=== PATIENT | male | born 1990 | race Caucasian/White ===

== ENCOUNTER 2016-10-21 14:43 | Emergency (ER) | payer MEDICAID ==
[~2016-10-21] VITALS: Ht 175.3 cm; Wt 73.0 kg
[~2016-10-21 14:43] MED LIST: CLON1 PO; DIVA500T52 PO; FOLI1 PO; RISP4 PO; THIA100 PO
[2016-10-21] MEDS ORDERED: ARIP2 PO (14:45)
[2016-10-21 15:01] VITALS: BP 173/99
[2016-10-21 15:57] LABS: BASOPHILS % (AUTO) 0.6 % (0.0-2.0); EOSINOPHILS % (AUTO) 5.2 % (1.0-6.0); HEMATOCRIT 45.8 % (41-53); HEMOGLOBIN 15.4 g/dL (13.5-17.5); LYMPHOCYTES # (AUTO) 2.9 K/uL (1.0-4.8); LYMPHOCYTES % (AUTO) 33.6 % (22.0-44.0); MEAN CORPUSCULAR HEMOGLOBIN 27.7 pg (26.0-34.0); MEAN CORPUSCULAR HGB CONC 33.6 G/dL (31.0-37.0); MEAN CORPUSCULAR VOLUME 83 fL (80-100); MONOCYTES # (AUTO) 0.6 K/uL (0.1-1.0); MONOCYTES % (AUTO) 7.3 % (2.0-9.0); NEUTROPHILS # (AUTO) 4.5 K/uL (1.8-7.7); NEUTROPHILS % (AUTO) 53.3 % (40.0-70.0); PLATELET COUNT (AUTO) 268 K/uL (150-450); RED BLOOD CELL COUNT(AUTO) 5.55 MIL/uL (4.50-5.90); RED CELL DISTRIBUTION WIDTH 14.1 % (11.5-14.5); WHITE BLOOD COUNT (AUTO) 8.5 K/uL (4.5-11.0)
[2016-10-21 16:28] LABS: ANION GAP 12 mmol/L (8-16); CALCIUM, TOTAL 8.8 mg/dL (8.8-10.5); CARBON DIOXIDE 26 mmol/L (22-29); CHLORIDE 105 mmol/L (98-107); CREATININE 0.94 mg/dL (0.60-1.30); GLOMERULAR FILTR. RATE CALC > 60 mL/min (>60); POTASSIUM 3.3 mmol/L (3.5-5.1); SODIUM SERUM 143 mmol/L (136-145); UREA NITROGEN, BLOOD 14 mg/dL (7-18)
[2016-10-21 16:35] LABS: ALANINE AMINOTRANSFERASE 35 U/L (12-78); ALBUMIN 3.5 g/dL (3.4-5.0); ASPARTATE AMINOTRANSFERASE 25 U/L (15-37); BILIRUBIN,TOTAL 0.6 mg/dL (0.1-1.0); TOTAL PROTEIN, SERUM 7.1 g/dL (6.4-8.2)
== END 2016-10-21 17:54 | disposition home or self-care (01) ==
LOC: EMS 14:44
DX: F41.9 Anxiety disorder, unspecified (principal); F17.210 Nicotine dependence, cigarettes, uncomplicated; F12.90 Cannabis use, unspecified, uncomplicated
CPT/HCPCS: 36415; 80053; 85025; 99284; G0480

== ENCOUNTER 2016-11-19 21:27 | Emergency (ER) | payer MEDICAID ==
[~2016-11-19] VITALS: Ht 167.6 cm; Wt 76.0 kg
[~2016-11-19 21:27] MED LIST changes: +ARIP2 PO; -CLON1 PO; -DIVA500T52 PO; -FOLI1 PO; -RISP4 PO; -THIA100 PO
[2016-11-19] MEDS ORDERED: LORazepam 1 MG TABLET PO ONE (22:15)
[2016-11-19 22:25] LABS: BASOPHILS % (AUTO) 0.8 % (0.0-2.0); EOSINOPHILS % (AUTO) 2.3 % (1.0-6.0); HEMATOCRIT 47.7 % (41-53); LYMPHOCYTES # (AUTO) 2.4 K/uL (1.0-4.8); LYMPHOCYTES % (AUTO) 21.4 % (22.0-44.0); MEAN CORPUSCULAR HGB CONC 33.4 G/dL (31.0-37.0); MEAN CORPUSCULAR VOLUME 84 fL (80-100); MONOCYTES # (AUTO) 0.8 K/uL (0.1-1.0); MONOCYTES % (AUTO) 7.6 % (2.0-9.0); NEUTROPHILS # (AUTO) 7.6 K/uL (1.8-7.7); NEUTROPHILS % (AUTO) 67.9 % (40.0-70.0); PLATELET COUNT (AUTO) 300 K/uL (150-450); RED BLOOD CELL COUNT(AUTO) 5.69 MIL/uL (4.50-5.90); RED CELL DISTRIBUTION WIDTH 13.3 % (11.5-14.5); WHITE BLOOD COUNT (AUTO) 11.2 K/uL (4.5-11.0)
[2016-11-19 22:35] LABS: ANION GAP 7 mmol/L (8-16); CALCIUM, TOTAL 8.9 mg/dL (8.8-10.5); CARBON DIOXIDE 31 mmol/L (22-29); CHLORIDE 103 mmol/L (98-107); CREATININE 1.15 mg/dL (0.60-1.30); GLOMERULAR FILTR. RATE CALC > 60 mL/min (>60); SODIUM SERUM 141 mmol/L (136-145); UREA NITROGEN, BLOOD 17 mg/dL (7-18)
[2016-11-19 22:41] LABS: ALANINE AMINOTRANSFERASE 33 U/L (12-78); ALBUMIN 3.9 g/dL (3.4-5.0); ASPARTATE AMINOTRANSFERASE 17 U/L (15-37); BILIRUBIN,TOTAL 0.4 mg/dL (0.1-1.0); TOTAL PROTEIN, SERUM 7.7 g/dL (6.4-8.2)
[2016-11-19 23:50] VITALS: BP 136/73
== END 2016-11-19 23:54 | disposition home or self-care (01) ==
LOC: EMS 23:27
DX: R07.89 Other chest pain (principal); F14.10 Cocaine abuse, uncomplicated; F31.9 Bipolar disorder, unspecified; F12.10 Cannabis abuse, uncomplicated
CPT/HCPCS: 71020; 93005; 99285

== ENCOUNTER 2016-12-21 20:22 | Emergency (ER) | payer MEDICAID ==
[~2016-12-21] VITALS: Ht 170.2 cm; Wt 86.0 kg
[2016-12-21 21:04] LABS: BASOPHILS % (AUTO) 0.3 % (0.0-2.0); EOSINOPHILS % (AUTO) 1.5 % (1.0-6.0); HEMATOCRIT 48.2 % (41-53); HEMOGLOBIN 16.1 g/dL (13.5-17.5); LYMPHOCYTES # (AUTO) 2.2 K/uL (1.0-4.8); LYMPHOCYTES % (AUTO) 22.8 % (22.0-44.0); MEAN CORPUSCULAR HEMOGLOBIN 27.8 pg (26.0-34.0); MEAN CORPUSCULAR HGB CONC 33.5 G/dL (31.0-37.0); MEAN CORPUSCULAR VOLUME 83 fL (80-100); MONOCYTES # (AUTO) 0.7 K/uL (0.1-1.0); MONOCYTES % (AUTO) 7.1 % (2.0-9.0); NEUTROPHILS # (AUTO) 6.7 K/uL (1.8-7.7); NEUTROPHILS % (AUTO) 68.3 % (40.0-70.0); PLATELET COUNT (AUTO) 279 K/uL (150-450); RED CELL DISTRIBUTION WIDTH 13.2 % (11.5-14.5); WHITE BLOOD COUNT (AUTO) 9.8 K/uL (4.5-11.0)
[2016-12-21 21:12] LABS: ANION GAP 10 mmol/L (8-16); CALCIUM, TOTAL 8.9 mg/dL (8.8-10.5); CARBON DIOXIDE 26 mmol/L (22-29); CHLORIDE 103 mmol/L (98-107); GLOMERULAR FILTR. RATE CALC > 60 mL/min (>60); POTASSIUM 3.8 mmol/L (3.5-5.1); SODIUM SERUM 139 mmol/L (136-145); UREA NITROGEN, BLOOD 15 mg/dL (7-18)
[2016-12-21 21:18] LABS: ALANINE AMINOTRANSFERASE 30 U/L (12-78); ALBUMIN 3.9 g/dL (3.4-5.0); ASPARTATE AMINOTRANSFERASE 16 U/L (15-37); BILIRUBIN,TOTAL 0.5 mg/dL (0.1-1.0)
[2016-12-21 21:30] LABS: TOTAL PROTEIN, SERUM 7.8 g/dL (6.4-8.2)
[2016-12-21 22:00] VITALS: BP 138/74
== END 2016-12-21 22:01 | disposition home or self-care (01) ==
LOC: EMS 20:27
DX: F12.10 Cannabis abuse, uncomplicated (principal); F15.10 Other stimulant abuse, uncomplicated; F31.9 Bipolar disorder, unspecified; F17.210 Nicotine dependence, cigarettes, uncomplicated
CPT/HCPCS: 36415; 80053; 80307; 85025; 99284; 99406; G0480

== ENCOUNTER 2016-12-27 11:48 | Inpatient (IN) | payer MEDICAID ==
[~2016-12-27] VITALS: Ht 170.2 cm; Wt 83.9 kg
[2016-12-27 12:23] LABS: BASOPHILS # (AUTO) 0.03 K/uL (0.00-0.20); BASOPHILS % (AUTO) 0.4 % (0.0-2.0); EOSINOPHILS # (AUTO) 0.23 K/uL (0.00-0.70); EOSINOPHILS % (AUTO) 2.39 % (1.0-6.0); HEMATOCRIT 48.4 % (41-53); LYMPHOCYTES # (AUTO) 2.3 K/uL (1.0-4.8); LYMPHOCYTES % (AUTO) 23.1 % (22.0-44.0); MEAN CORPUSCULAR HEMOGLOBIN 27.6 pg (26.0-34.0); MEAN CORPUSCULAR VOLUME 84 fL (80-100); MONOCYTES # (AUTO) 0.8 K/uL (0.1-1.0); MONOCYTES % (AUTO) 7.8 % (2.0-9.0); NEUTROPHILS # (AUTO) 6.5 K/uL (1.8-7.7); NEUTROPHILS % (AUTO) 66.4 % (40.0-70.0); PLATELET COUNT (AUTO) 283 K/uL (150-450); RED BLOOD CELL COUNT(AUTO) 5.79 MIL/uL (4.50-5.90); RED CELL DISTRIBUTION WIDTH 12.9 % (11.5-14.5); WHITE BLOOD COUNT (AUTO) 9.7 K/uL (4.5-11.0)
[2016-12-27 12:43] LABS: ANION GAP 8 mmol/L (8-16); CALCIUM, TOTAL 8.4 mg/dL (8.8-10.5); CARBON DIOXIDE 28 mmol/L (22-29); CHLORIDE 103 mmol/L (98-107); CREATININE 0.94 mg/dL (0.60-1.30); GLOMERULAR FILTR. RATE CALC > 60 mL/min (>60); POTASSIUM 3.9 mmol/L (3.5-5.1); SODIUM SERUM 139 mmol/L (136-145); UREA NITROGEN, BLOOD 8 mg/dL (7-18)
[2016-12-27 12:50] LABS: ALANINE AMINOTRANSFERASE 29 U/L (12-78); ALBUMIN 3.6 g/dL (3.4-5.0); ASPARTATE AMINOTRANSFERASE 18 U/L (15-37); BILIRUBIN,TOTAL 0.3 mg/dL (0.1-1.0)
[2016-12-27 13:16] LABS: APPEARANCE,URINE CLEAR (CLEAR); GLUCOSE, URINE (UA) NEGATIVE (NEGATIVE); KETONES,URINE NEGATIVE (NEGATIVE); LEUKOCYTE ESTERASE ,URINE NEGATIVE (NEGATIVE); OCCULT BLOOD,URINE NEGATIVE (NEGATIVE); PH,URINE 7.5 (5.0-8.0); PROTEIN,URINE NEGATIVE (NEGATIVE)
[2016-12-27 13:25] LABS: ADD UA MICROSCOPIC NO
[2016-12-27 13:28] LABS: CHOL/HDL RATIO 4.5 (4.2-7.3); THYROID STIMULATING HORMONE 0.63 uIU/mL (0.36-3.74)
[2016-12-27] MEDS ORDERED: LORazepam 2 MG TABLET PO ONE (13:30)
[2016-12-27 16:29] VITALS: BP 117/68
[2016-12-27 16:43] VITALS: BP 117/68
[2016-12-27 16:49] VITALS: BP 117/60
[2016-12-27] MEDS: HALOPERIDOL 5 MG TABLET PO PRN (18:50)
[2016-12-27] MEDS: LORazepam 2 MG TABLET PO PRN (19:06)
[2016-12-28 01:39] VITALS: BP 109/68
[2016-12-28 01:40] VITALS: BP 109/68
[2016-12-28] MEDS: ZOLPIDEM TARTRATE 10 MG TABLET PO PRN (03:10)
[2016-12-28] MEDS: LORazepam 2 MG TABLET PO PRN ×3 (03:10→16:18)
[2016-12-28] MEDS ORDERED: INFLUENZA VIRUS VACCINE QVS 2017-18 (3YR+)/PF 60 MCG/0.5 ML SYRINGE IM ONE (03:30)
[2016-12-28] MEDS ORDERED: PETROLATUM,WHITE 71 GM JELLY TP PRN (07:45)
[2016-12-28] MEDS ORDERED: LOPERAMIDE HCL 2 MG CAPSULE PO PRN (07:45)
[2016-12-28] MEDS ORDERED: ONDANSETRON HCL 4 MG TABLET PO PRN (07:45)
[2016-12-28] MEDS ORDERED: IBUPROFEN 600 MG TABLET PO PRN (07:45)
[2016-12-28] MEDS ORDERED: BACITRACIN 28.4 GM OINTMENT TP PRN (07:45)
[2016-12-28] MEDS ORDERED: ACETAMINOPHEN 325 MG TABLET PO PRN (07:45)
[2016-12-28] MEDS ORDERED: ALBUTEROL SULFATE HFA 90 MCG/PUFF 8 GM INHALER IH PRN (07:45)
[2016-12-28] MEDS ORDERED: MAGNESIUM HYDROXIDE SUSPENSION 30 ML UDCUP PO PRN (07:45)
[2016-12-28] MEDS ORDERED: CloNIDine HCL 0.1 MG TABLET PO PRN (07:45)
[2016-12-28] MEDS ORDERED: MAG HYDROX/AL HYDROX/SIMETH ES 30 ML SUSPENSION UDCUP PO PRN (07:45)
[2016-12-28 08:41] VITALS: BP 130/74
[2016-12-28] MEDS: HALOPERIDOL 5 MG TABLET PO PRN (09:43)
[2016-12-28] MEDS ORDERED: ARIPiprazole 10 MG TABLET PO SCH (09:45)
[2016-12-28] MEDS ORDERED: DIVALPROEX SODIUM 500 MG DR TABLET PO SCH (09:45)
[2016-12-28] MEDS ORDERED: ARIPiprazole 5 MG TABLET PO SCH (09:45)
[2016-12-28] MEDS: OMEGA-3/DHA/EPA/FISH OIL 500 MG CAPSULE PO SCH (10:24)
[2016-12-28] MEDS: LITHIUM CARBONATE 300 MG CAPSULE PO SCH ×2 (12:34→16:18)
[2016-12-28] MEDS: NICOTINE 21 MG/24 HOUR PATCH TD SCH (12:34)
[2016-12-28] MEDS: ARIPiprazole 5 MG TABLET PO SCH (12:34)
[2016-12-28 16:20] VITALS: BP 112/70
[2016-12-28] MEDS ORDERED: HALOPERIDOL LACTATE 5 MG/ML VIAL IM ONE (19:45)
[2016-12-28] MEDS ORDERED: LORazepam 2 MG/ML VIAL IM ONE (19:45)
[2016-12-28] MEDS ORDERED: DiphenhydrAMINE HCL 50 MG/ML VIAL IM ONE (19:45)
[2016-12-28] MEDS ORDERED: LORazepam 2 MG/ML VIAL ONE (19:47)
[2016-12-29] MEDS: ZOLPIDEM TARTRATE 10 MG TABLET PO PRN ×2 (00:14→20:05)
[2016-12-29] MEDS: LORazepam 2 MG TABLET PO PRN ×4 (00:14→20:05)
[2016-12-29 00:15] VITALS: BP 121/78
[2016-12-29 08:00] VITALS: BP 130/84
[2016-12-29] MEDS: OMEGA-3/DHA/EPA/FISH OIL 500 MG CAPSULE PO SCH (08:16)
[2016-12-29] MEDS: LITHIUM CARBONATE 300 MG CAPSULE PO SCH ×2 (08:16→16:01)
[2016-12-29] MEDS: ARIPiprazole 5 MG TABLET PO SCH (08:16)
[2016-12-29] MEDS: NICOTINE 21 MG/24 HOUR PATCH TD SCH (08:17)
[2016-12-29] MEDS: HALOPERIDOL 5 MG TABLET PO PRN ×2 (08:17→16:01)
[2016-12-29 16:00] VITALS: BP 121/74
[2016-12-30 00:06] VITALS: BP 134/79
[2016-12-30] MEDS: OMEGA-3/DHA/EPA/FISH OIL 500 MG CAPSULE PO SCH (08:18)
[2016-12-30] MEDS: LITHIUM CARBONATE 300 MG CAPSULE PO SCH ×2 (08:18→16:08)
[2016-12-30] MEDS: ARIPiprazole 5 MG TABLET PO SCH (08:18)
[2016-12-30] MEDS: NICOTINE 21 MG/24 HOUR PATCH TD SCH (08:20)
[2016-12-30 08:33] VITALS: BP 136/80
[2016-12-30 16:00] VITALS: BP 138/85
[2016-12-30] MEDS: LORazepam 2 MG TABLET PO PRN ×2 (16:08→20:11)
[2016-12-30] MEDS: HALOPERIDOL 5 MG TABLET PO PRN (16:08)
[2016-12-30] MEDS: ZOLPIDEM TARTRATE 10 MG TABLET PO PRN (20:11)
[2016-12-31 06:30] VITALS: BP 144/93
[2016-12-31 08:11] VITALS: BP 143/84
[2016-12-31] MEDS: OMEGA-3/DHA/EPA/FISH OIL 500 MG CAPSULE PO SCH (08:28)
[2016-12-31] MEDS: LITHIUM CARBONATE 300 MG CAPSULE PO SCH ×2 (08:28→16:16)
[2016-12-31] MEDS: ARIPiprazole 5 MG TABLET PO SCH (08:29)
[2016-12-31] MEDS: NICOTINE 21 MG/24 HOUR PATCH TD SCH (08:29)
[2016-12-31] MEDS: LORazepam 2 MG TABLET PO PRN ×3 (08:32→18:14)
[2016-12-31] MEDS: HALOPERIDOL 5 MG TABLET PO PRN ×3 (08:32→18:14)
[2016-12-31 16:16] VITALS: BP 144/82
[2016-12-31] MEDS: ZOLPIDEM TARTRATE 10 MG TABLET PO PRN (20:52)
[2017-01-01 01:47] VITALS: BP 112/76
[2017-01-01] MEDS: HALOPERIDOL 5 MG TABLET PO PRN ×3 (03:31→16:13)
[2017-01-01] MEDS: LORazepam 2 MG TABLET PO PRN ×3 (03:31→16:13)
[2017-01-01 08:27] VITALS: BP 138/83
[2017-01-01] MEDS: OMEGA-3/DHA/EPA/FISH OIL 500 MG CAPSULE PO SCH (08:38)
[2017-01-01] MEDS: ARIPiprazole 5 MG TABLET PO SCH (08:38)
[2017-01-01] MEDS: LITHIUM CARBONATE 300 MG CAPSULE PO SCH ×2 (08:38→16:13)
[2017-01-01] MEDS: NICOTINE 21 MG/24 HOUR PATCH TD SCH (08:39)
[2017-01-01 16:00] VITALS: BP 133/78
[2017-01-02 00:13] VITALS: BP 133/75
[2017-01-02] MEDS: LORazepam 2 MG TABLET PO PRN ×4 (03:21→21:11)
[2017-01-02 08:18] VITALS: BP 139/83
[2017-01-02] MEDS: LITHIUM CARBONATE 300 MG CAPSULE PO SCH ×2 (08:36→16:12)
[2017-01-02] MEDS: OMEGA-3/DHA/EPA/FISH OIL 500 MG CAPSULE PO SCH (08:37)
[2017-01-02] MEDS: ARIPiprazole 5 MG TABLET PO SCH (08:37)
[2017-01-02] MEDS: NICOTINE 21 MG/24 HOUR PATCH TD SCH (08:38)
[2017-01-02] MEDS ORDERED: ARIPiprazole 15 MG TABLET PO ONE (10:00)
[2017-01-02] MEDS: HALOPERIDOL 5 MG TABLET PO PRN ×2 (13:00→17:07)
[2017-01-02 16:34] VITALS: BP 123/84
[2017-01-02] MEDS: ZOLPIDEM TARTRATE 10 MG TABLET PO PRN (21:11)
[2017-01-03 06:26] VITALS: BP 128/81
[2017-01-03] MEDS: HALOPERIDOL 5 MG TABLET PO PRN ×2 (08:16→16:25)
[2017-01-03] MEDS: ARIPiprazole 10 MG TABLET PO SCH (08:16)
[2017-01-03] MEDS: NICOTINE 21 MG/24 HOUR PATCH TD SCH (08:16)
[2017-01-03] MEDS: LORazepam 2 MG TABLET PO PRN ×2 (08:16→16:25)
[2017-01-03] MEDS: OMEGA-3/DHA/EPA/FISH OIL 500 MG CAPSULE PO SCH (08:16)
[2017-01-03] MEDS: LITHIUM CARBONATE 300 MG CAPSULE PO SCH ×2 (08:16→16:25)
[2017-01-03 08:17] VITALS: BP 136/78
[2017-01-03 16:00] VITALS: BP 131/83
[2017-01-04 00:48] VITALS: BP 123/82
[2017-01-04 08:09] VITALS: BP 148/93
[2017-01-04] MEDS: OMEGA-3/DHA/EPA/FISH OIL 500 MG CAPSULE PO SCH (08:27)
[2017-01-04] MEDS: ARIPiprazole 10 MG TABLET PO SCH (08:27)
[2017-01-04] MEDS: LITHIUM CARBONATE 300 MG CAPSULE PO SCH ×2 (08:27→17:00)
[2017-01-04] MEDS: NICOTINE 21 MG/24 HOUR PATCH TD SCH (08:27)
[2017-01-04] MEDS: LORazepam 2 MG TABLET PO PRN ×3 (08:30→20:21)
[2017-01-04] MEDS: HALOPERIDOL 5 MG TABLET PO PRN (08:37)
[2017-01-04 16:14] VITALS: BP 140/83
[2017-01-04] MEDS: ZOLPIDEM TARTRATE 10 MG TABLET PO PRN (20:21)
[2017-01-05] MEDS: LORazepam 2 MG TABLET PO PRN ×3 (00:39→20:24)
[2017-01-05] MEDS: HALOPERIDOL 5 MG TABLET PO PRN ×3 (00:39→16:25)
[2017-01-05 00:56] VITALS: BP 130/75
[2017-01-05] MEDS: ARIPiprazole 10 MG TABLET PO SCH (08:27)
[2017-01-05] MEDS: LITHIUM CARBONATE 300 MG CAPSULE PO SCH ×2 (08:27→16:25)
[2017-01-05] MEDS: OMEGA-3/DHA/EPA/FISH OIL 500 MG CAPSULE PO SCH (08:27)
[2017-01-05] MEDS: NICOTINE 21 MG/24 HOUR PATCH TD SCH (08:28)
[2017-01-05 08:51] VITALS: BP 135/72
[2017-01-05 16:34] VITALS: BP 133/69
[2017-01-05] MEDS: ZOLPIDEM TARTRATE 10 MG TABLET PO PRN (20:24)
[2017-01-06] MEDS: LORazepam 2 MG TABLET PO PRN ×2 (01:05→08:15)
[2017-01-06] MEDS: HALOPERIDOL 5 MG TABLET PO PRN ×2 (01:05→08:15)
[2017-01-06 03:16] VITALS: BP 130/72
[2017-01-06] MEDS: OMEGA-3/DHA/EPA/FISH OIL 500 MG CAPSULE PO SCH (08:14)
[2017-01-06] MEDS: LITHIUM CARBONATE 300 MG CAPSULE PO SCH ×2 (08:15→16:16)
[2017-01-06] MEDS: NICOTINE 21 MG/24 HOUR PATCH TD SCH (08:15)
[2017-01-06] MEDS: ARIPiprazole 10 MG TABLET PO SCH (08:15)
[2017-01-06 08:17] VITALS: BP 137/76
[2017-01-06] MEDS ORDERED: ClonazePAM 1 MG TABLET PO SCH (09:00)
[2017-01-06 16:00] VITALS: BP 123/80
[2017-01-06] MEDS: ClonazePAM 1 MG TABLET PO SCH (20:25)
[2017-01-06] MEDS: ZOLPIDEM TARTRATE 10 MG TABLET PO PRN (20:25)
[2017-01-07 02:30] VITALS: BP 125/85
[2017-01-07 08:14] VITALS: BP 138/86
[2017-01-07] MEDS: OMEGA-3/DHA/EPA/FISH OIL 500 MG CAPSULE PO SCH (08:50)
[2017-01-07] MEDS: ClonazePAM 1 MG TABLET PO SCH ×2 (08:50→20:31)
[2017-01-07] MEDS: LITHIUM CARBONATE 300 MG CAPSULE PO SCH ×2 (08:50→16:09)
[2017-01-07] MEDS: ARIPiprazole 10 MG TABLET PO SCH (08:50)
[2017-01-07] MEDS: HALOPERIDOL 5 MG TABLET PO PRN ×3 (08:50→16:09)
[2017-01-07] MEDS: NICOTINE 21 MG/24 HOUR PATCH TD SCH (08:51)
[2017-01-07 16:00] VITALS: BP 134/80
[2017-01-07] MEDS: ZOLPIDEM TARTRATE 10 MG TABLET PO PRN (20:31)
[2017-01-08 06:30] VITALS: BP 147/84
[2017-01-08] MEDS: HALOPERIDOL 5 MG TABLET PO PRN ×2 (06:47→16:37)
[2017-01-08 08:13] VITALS: BP 136/75
[2017-01-08] MEDS: ClonazePAM 1 MG TABLET PO SCH ×2 (08:32→20:27)
[2017-01-08] MEDS: ARIPiprazole 10 MG TABLET PO SCH (08:32)
[2017-01-08] MEDS: LITHIUM CARBONATE 300 MG CAPSULE PO SCH ×2 (08:32→20:27)
[2017-01-08] MEDS: OMEGA-3/DHA/EPA/FISH OIL 500 MG CAPSULE PO SCH (08:33)
[2017-01-08] MEDS: NICOTINE 21 MG/24 HOUR PATCH TD SCH (08:35)
[2017-01-08 16:00] VITALS: BP 138/76
[2017-01-08] MEDS: ZOLPIDEM TARTRATE 10 MG TABLET PO PRN (20:27)
[2017-01-08] MEDS ORDERED: LITHIUM CARBONATE 300 MG CAPSULE PO SCH (21:00)
[2017-01-09 01:36] VITALS: BP 107/65
[2017-01-09] MEDS: HALOPERIDOL 5 MG TABLET PO PRN ×2 (01:46→08:09)
[2017-01-09] MEDS: OMEGA-3/DHA/EPA/FISH OIL 500 MG CAPSULE PO SCH (08:09)
[2017-01-09] MEDS: LITHIUM CARBONATE 600 MG CAPSULE PO SCH (08:09)
[2017-01-09] MEDS: NICOTINE 21 MG/24 HOUR PATCH TD SCH (08:09)
[2017-01-09] MEDS: ARIPiprazole 10 MG TABLET PO SCH (08:09)
[2017-01-09] MEDS: ClonazePAM 1 MG TABLET PO SCH ×2 (08:09→20:26)
[2017-01-09 08:13] VITALS: BP 127/82
[2017-01-09] MEDS: LITHIUM CARBONATE 300 MG CAPSULE PO SCH (16:21)
[2017-01-09 16:37] VITALS: BP 147/87
[2017-01-09] MEDS: ZOLPIDEM TARTRATE 10 MG TABLET PO PRN (20:26)
[2017-01-10] MEDS: HALOPERIDOL 5 MG TABLET PO PRN ×2 (00:21→13:02)
[2017-01-10 00:28] VITALS: BP 128/83
[2017-01-10] MEDS ORDERED: DiphenhydrAMINE HCL 50 MG/ML VIAL ONE (07:54)
[2017-01-10] MEDS ORDERED: HALOPERIDOL LACTATE 5 MG/ML VIAL ONE (07:55)
[2017-01-10] MEDS ORDERED: HALOPERIDOL LACTATE 5 MG/ML VIAL IM ONE ×3 (08:00→18:00)
[2017-01-10] MEDS ORDERED: DiphenhydrAMINE HCL 50 MG/ML VIAL IM ONE ×3 (08:00→18:00)
[2017-01-10] MEDS: ClonazePAM 1 MG TABLET PO SCH ×2 (08:09→20:42)
[2017-01-10 08:40] VITALS: BP 130/88
[2017-01-10] MEDS: NICOTINE 21 MG/24 HOUR PATCH TD SCH (09:00)
[2017-01-10] MEDS: LITHIUM CARBONATE 600 MG CAPSULE PO SCH (09:00)
[2017-01-10] MEDS: OMEGA-3/DHA/EPA/FISH OIL 500 MG CAPSULE PO SCH (09:00)
[2017-01-10] MEDS ORDERED: LORazepam 2 MG/ML VIAL ONE (13:56)
[2017-01-10] MEDS ORDERED: LORazepam 2 MG/ML VIAL IM ONE ×2 (14:00→18:00)
[2017-01-10 16:00] VITALS: BP 129/82
[2017-01-10] MEDS: LITHIUM CARBONATE 300 MG CAPSULE PO SCH (16:07)
[2017-01-10] MEDS: OLANZapine 10 MG TABLET PO SCH (20:40)
[2017-01-11 01:24] VITALS: BP 133/81
[2017-01-11] MEDS: ClonazePAM 1 MG TABLET PO SCH ×2 (08:14→20:27)
[2017-01-11] MEDS: OMEGA-3/DHA/EPA/FISH OIL 500 MG CAPSULE PO SCH (08:14)
[2017-01-11] MEDS: NICOTINE 21 MG/24 HOUR PATCH TD SCH (08:14)
[2017-01-11] MEDS: OLANZapine 10 MG TABLET PO SCH ×2 (08:14→20:27)
[2017-01-11] MEDS: LITHIUM CARBONATE 600 MG CAPSULE PO SCH (08:14)
[2017-01-11 08:17] VITALS: BP 135/87
[2017-01-11 16:00] VITALS: BP 123/77
[2017-01-11] MEDS: LITHIUM CARBONATE 300 MG CAPSULE PO SCH (16:10)
[2017-01-11] MEDS: ZOLPIDEM TARTRATE 10 MG TABLET PO PRN (20:27)
[2017-01-12 01:57] VITALS: BP 110/63
[2017-01-12] MEDS: LITHIUM CARBONATE 600 MG CAPSULE PO SCH (08:06)
[2017-01-12] MEDS: OLANZapine 10 MG TABLET PO SCH ×2 (08:06→21:00)
[2017-01-12] MEDS: OMEGA-3/DHA/EPA/FISH OIL 500 MG CAPSULE PO SCH (08:06)
[2017-01-12] MEDS: ClonazePAM 1 MG TABLET PO SCH ×2 (08:06→21:00)
[2017-01-12 08:20] VITALS: BP 137/82
[2017-01-12] MEDS: NICOTINE 21 MG/24 HOUR PATCH TD SCH (09:00)
[2017-01-12 16:00] VITALS: BP 138/88
[2017-01-12] MEDS: LITHIUM CARBONATE 300 MG CAPSULE PO SCH (16:44)
[2017-01-12] MEDS: HALOPERIDOL 5 MG TABLET PO PRN (16:44)
[2017-01-13] MEDS ORDERED: DiphenhydrAMINE HCL 50 MG/ML VIAL IM ONE (01:45)
[2017-01-13] MEDS ORDERED: LORazepam 2 MG/ML VIAL IM ONE (01:45)
[2017-01-13] MEDS ORDERED: HALOPERIDOL LACTATE 5 MG/ML VIAL IM ONE (01:45)
[2017-01-13 02:00] VITALS: BP 132/85
[2017-01-13] MEDS: OMEGA-3/DHA/EPA/FISH OIL 500 MG CAPSULE PO SCH (08:34)
[2017-01-13] MEDS: NICOTINE 21 MG/24 HOUR PATCH TD SCH (08:34)
[2017-01-13] MEDS: ClonazePAM 1 MG TABLET PO SCH ×2 (08:34→20:25)
[2017-01-13] MEDS: LITHIUM CARBONATE 600 MG CAPSULE PO SCH (08:36)
[2017-01-13] MEDS: OLANZapine 7.5 MG TABLET PO SCH ×2 (08:36→20:25)
[2017-01-13 08:48] VITALS: BP 118/82
[2017-01-13 16:00] VITALS: BP 132/83
[2017-01-13] MEDS: LITHIUM CARBONATE 300 MG CAPSULE PO SCH (16:13)
[2017-01-13] MEDS: ZOLPIDEM TARTRATE 10 MG TABLET PO PRN (20:25)
[2017-01-13] MEDS: HALOPERIDOL 5 MG TABLET PO PRN (23:57)
[2017-01-14] MEDS: BENZOCAINE/MENTHOL LOZENGE MM PRN (04:03)
[2017-01-14] MEDS: ClonazePAM 1 MG TABLET PO SCH ×2 (08:39→20:23)
[2017-01-14] MEDS: LITHIUM CARBONATE 600 MG CAPSULE PO SCH (08:39)
[2017-01-14] MEDS: OMEGA-3/DHA/EPA/FISH OIL 500 MG CAPSULE PO SCH (08:39)
[2017-01-14] MEDS: NICOTINE 21 MG/24 HOUR PATCH TD SCH (08:44)
[2017-01-14] MEDS: OLANZapine 7.5 MG TABLET PO SCH ×2 (08:44→20:23)
[2017-01-14 09:21] VITALS: BP 140/79
[2017-01-14] MEDS: LITHIUM CARBONATE 300 MG CAPSULE PO SCH (16:06)
[2017-01-14] MEDS: HALOPERIDOL 5 MG TABLET PO PRN (16:07)
[2017-01-14 18:03] VITALS: BP 124/88
[2017-01-14] MEDS: ZOLPIDEM TARTRATE 10 MG TABLET PO PRN (20:23)
[2017-01-15] MEDS: HALOPERIDOL 5 MG TABLET PO PRN (02:11)
[2017-01-15 02:12] VITALS: BP 125/87
[2017-01-15 08:20] VITALS: BP 135/83
[2017-01-15] MEDS: OMEGA-3/DHA/EPA/FISH OIL 500 MG CAPSULE PO SCH (09:27)
[2017-01-15] MEDS: OLANZapine 7.5 MG TABLET PO SCH ×2 (09:27→20:30)
[2017-01-15] MEDS: ClonazePAM 1 MG TABLET PO SCH ×2 (09:27→20:31)
[2017-01-15] MEDS: LITHIUM CARBONATE 600 MG CAPSULE PO SCH (09:27)
[2017-01-15] MEDS: NICOTINE 21 MG/24 HOUR PATCH TD SCH (09:28)
[2017-01-15] MEDS: BENZOCAINE/MENTHOL LOZENGE MM PRN ×2 (10:16→20:46)
[2017-01-15] MEDS: LITHIUM CARBONATE 300 MG CAPSULE PO SCH (16:04)
[2017-01-15 16:40] VITALS: BP 111/63
[2017-01-15] MEDS: ZOLPIDEM TARTRATE 10 MG TABLET PO PRN (20:31)
[2017-01-16 07:35] VITALS: BP 126/76
[2017-01-16 08:31] VITALS: BP 123/85
[2017-01-16] MEDS ORDERED: OLAN7.5T2 PO (08:41)
[2017-01-16] MEDS ORDERED: CLON2 PO (08:41)
[2017-01-16] MEDS ORDERED: LITH600 PO (08:41)
[2017-01-16] MEDS ORDERED: LITH300C3 PO (08:41)
[2017-01-16] MEDS: NICOTINE 21 MG/24 HOUR PATCH TD SCH (08:52)
[2017-01-16] MEDS: OMEGA-3/DHA/EPA/FISH OIL 500 MG CAPSULE PO SCH (08:52)
[2017-01-16] MEDS: LITHIUM CARBONATE 600 MG CAPSULE PO SCH (08:52)
[2017-01-16] MEDS: OLANZapine 7.5 MG TABLET PO SCH (08:52)
== END 2017-01-16 14:10 | disposition home or self-care (01) | DRG 753 ==
LOC: EMS 11:53 → B2S 13:57 → B3A 12-28 22:14
DX: F31.2 Bipolar disorder, current episode manic severe with psychotic features (principal); E83.51 Hypocalcemia; E78.5 Hyperlipidemia, unspecified; R73.9 Hyperglycemia, unspecified; G47.00 Insomnia, unspecified; F12.90 Cannabis use, unspecified, uncomplicated; F17.200 Nicotine dependence, unspecified, uncomplicated; F14.90 Cocaine use, unspecified, uncomplicated; Z71.51 Drug abuse counseling and surveillance of drug abuser; Z71.6 Tobacco abuse counseling; Z56.0 Unemployment, unspecified
CPT/HCPCS: 82306; 83036; 84439; 84443; 99285; 99406; G0480; J1200; J1630; J2060; J3535

== ENCOUNTER 2017-11-21 09:07 | Emergency (ER) | payer MEDICAID ==
[~2017-11-21] VITALS: Ht 170.2 cm; Wt 72.0 kg
[~2017-11-21 09:07] MED LIST changes: -ARIP2 PO; +CLON2 PO; +LITH300C3 PO; +LITH600 PO; +OLAN7.5T2 PO
[2017-11-21 10:53] LABS: AMPHET/METH SCREEN,URINE POSITIVE (NEGATIVE); BARBITURATE SCREEN, URINE NEGATIVE (NEGATIVE); BENZODIAZEPINES SCREEN,URINE NEGATIVE (NEGATIVE); CANNABINOID SCREEN,URINE POSITIVE (NEGATIVE); COCAINE SCREEN,URINE POSITIVE (NEGATIVE); METHADONE SCREEN, URINE NEGATIVE (NEGATIVE); OPIATE SCREEN,URINE NEGATIVE (NEGATIVE)
[2017-11-21 10:54] LABS: PHENCYCLIDINE SCREEN,URINE NEGATIVE (NEGATIVE)
[2017-11-21 11:08] LABS: BASOPHILS % (AUTO) 0.4 % (0.0-2.0); EOSINOPHILS % (AUTO) 0.5 % (1.0-6.0); HEMATOCRIT 42.7 % (41-53); HEMOGLOBIN 14.2 g/dL (13.5-17.5); LYMPHOCYTES # (AUTO) 1.8 K/uL (1.0-4.8); LYMPHOCYTES % (AUTO) 20.5 % (22.0-44.0); MEAN CORPUSCULAR HEMOGLOBIN 25.8 pg (26.0-34.0); MEAN CORPUSCULAR HGB CONC 33.2 G/dL (31.0-37.0); MEAN CORPUSCULAR VOLUME 78 fL (80-100); MONOCYTES # (AUTO) 0.7 K/uL (0.1-1.0); MONOCYTES % (AUTO) 8.7 % (2.0-9.0); NEUTROPHILS % (AUTO) 69.9 % (40.0-70.0); PLATELET COUNT (AUTO) 286 K/uL (150-450); RED BLOOD CELL COUNT(AUTO) 5.48 MIL/uL (4.50-5.90)
[2017-11-21 11:20] LABS: ANION GAP 11 mmol/L (8-16); CALCIUM, TOTAL 8.5 mg/dL (8.8-10.5); CARBON DIOXIDE 25 mmol/L (22-29); CHLORIDE 103 mmol/L (98-107); CREATININE 1.03 mg/dL (0.60-1.30); GLOMERULAR FILTR. RATE CALC > 60 mL/min (>60); GLUCOSE,RANDOM 100 mg/dL (70-110); POTASSIUM 3.5 mmol/L (3.5-5.1); SODIUM SERUM 139 mmol/L (136-145); UREA NITROGEN, BLOOD 13 mg/dL (7-18)
[2017-11-21 11:27] LABS: ALANINE AMINOTRANSFERASE 19 U/L (12-78); ALBUMIN 3.2 g/dL (3.4-5.0); ALKALINE PHOSPHATASE 77 U/L (46-116); ASPARTATE AMINOTRANSFERASE 14 U/L (15-37); BILIRUBIN,TOTAL 0.7 mg/dL (0.1-1.0); TOTAL PROTEIN, SERUM 7.1 g/dL (6.4-8.2)
[2017-11-21] MEDS ORDERED: LORazepam 2 MG/ML VIAL IM ONE (12:45)
[2017-11-21] MEDS ORDERED: HALOPERIDOL LACTATE 5 MG/ML VIAL IM ONE (12:45)
[2017-11-21 15:19] VITALS: BP 127/87
== END 2017-11-21 15:24 | disposition home or self-care (01) ==
LOC: EMS 09:08
DX: F31.9 Bipolar disorder, unspecified (principal); F15.10 Other stimulant abuse, uncomplicated; F17.210 Nicotine dependence, cigarettes, uncomplicated; F14.90 Cocaine use, unspecified, uncomplicated; F12.90 Cannabis use, unspecified, uncomplicated; Z79.899 Other long term (current) drug therapy
CPT/HCPCS: 36415; 80053; 80307; 85025; 99285; G0480

== ENCOUNTER 2018-07-13 20:30 | Emergency (ER) | payer MEDICAID ==
[~2018-07-13] VITALS: Ht 170.2 cm; Wt 86.8 kg
[2018-07-13 21:17] VITALS: BP 146/96
[2018-07-13] MEDS ORDERED: HALO100V4 IM (21:21)
[2018-07-13 22:11] LABS: BASOPHILS % (AUTO) 0.6 % (0.0-2.0); EOSINOPHILS % (AUTO) 3.4 % (1.0-6.0); HEMOGLOBIN 14.6 g/dL (13.5-17.5); LYMPHOCYTES # (AUTO) 3.2 K/uL (1.0-4.8); LYMPHOCYTES % (AUTO) 30.6 % (22.0-44.0); MEAN CORPUSCULAR HEMOGLOBIN 26.5 pg (26.0-34.0); MEAN CORPUSCULAR HGB CONC 33.2 G/dL (31.0-37.0); MEAN CORPUSCULAR VOLUME 80 fL (80-100); MONOCYTES # (AUTO) 1.2 K/uL (0.1-1.0); MONOCYTES % (AUTO) 11.5 % (2.0-9.0); NEUTROPHILS # (AUTO) 5.7 K/uL (1.8-7.7); NEUTROPHILS % (AUTO) 53.9 % (40.0-70.0); PLATELET COUNT (AUTO) 392 K/uL (150-450); RED BLOOD CELL COUNT(AUTO) 5.51 MIL/uL (4.50-5.90); RED CELL DISTRIBUTION WIDTH 14.3 % (11.5-14.5)
[2018-07-13 22:29] LABS: ANION GAP 4 mmol/L (8-16); CALCIUM, TOTAL 9.5 mg/dL (8.8-10.5); CARBON DIOXIDE 33 mmol/L (22-29); CHLORIDE 101 mmol/L (98-107); CREATININE 0.92 mg/dL (0.60-1.30); GLOMERULAR FILTR. RATE CALC > 60 mL/min (>60); GLUCOSE,RANDOM 97 mg/dL (70-110); POTASSIUM 4.6 mmol/L (3.5-5.1); SODIUM SERUM 138 mmol/L (136-145); UREA NITROGEN, BLOOD 12 mg/dL (7-18)
[2018-07-13 22:35] LABS: ALANINE AMINOTRANSFERASE 40 U/L (12-78); ALBUMIN 3.7 g/dL (3.4-5.0); ALKALINE PHOSPHATASE 101 U/L (46-116); ASPARTATE AMINOTRANSFERASE 23 U/L (15-37); BILIRUBIN,TOTAL 0.2 mg/dL (0.1-1.0); TOTAL PROTEIN, SERUM 7.7 g/dL (6.4-8.2)
== END 2018-07-14 01:00 | disposition left against medical advice (07) ==
LOC: EMS 20:30
DX: R44.3 Hallucinations, unspecified (principal); F31.9 Bipolar disorder, unspecified; F20.9 Schizophrenia, unspecified; F17.210 Nicotine dependence, cigarettes, uncomplicated; F12.90 Cannabis use, unspecified, uncomplicated; F19.90 Other psychoactive substance use, unspecified, uncomplicated; F14.90 Cocaine use, unspecified, uncomplicated; Z53.21 Procedure and treatment not carried out due to patient leaving prior to being seen by health care provider
CPT/HCPCS: 36415; 80053; 85025; G0480

== ENCOUNTER 2018-08-02 10:05 | Emergency (ER) | payer MEDICAID ==
[~2018-08-02] VITALS: Ht 170.2 cm; Wt 86.4 kg
[~2018-08-02 10:05] MED LIST changes: +HALO100V4 IM
[2018-08-02 10:50] LABS: AMPHET/METH SCREEN,URINE NEGATIVE (NEGATIVE); BARBITURATE SCREEN, URINE NEGATIVE (NEGATIVE); BENZODIAZEPINES SCREEN,URINE NEGATIVE (NEGATIVE); CANNABINOID SCREEN,URINE POSITIVE (NEGATIVE); COCAINE SCREEN,URINE NEGATIVE (NEGATIVE); METHADONE SCREEN, URINE NEGATIVE (NEGATIVE); OPIATE SCREEN,URINE NEGATIVE (NEGATIVE)
[2018-08-02 10:51] LABS: PHENCYCLIDINE SCREEN,URINE NEGATIVE (NEGATIVE)
[2018-08-02 10:53] LABS: BASOPHILS % (AUTO) 0.6 % (0.0-2.0); EOSINOPHILS % (AUTO) 2.6 % (1.0-6.0); HEMATOCRIT 41.5 % (41-53); HEMOGLOBIN 13.8 g/dL (13.5-17.5); LYMPHOCYTES # (AUTO) 2.1 K/uL (1.0-4.8); LYMPHOCYTES % (AUTO) 20.8 % (22.0-44.0); MEAN CORPUSCULAR HEMOGLOBIN 26.7 pg (26.0-34.0); MEAN CORPUSCULAR HGB CONC 33.2 G/dL (31.0-37.0); MEAN CORPUSCULAR VOLUME 81 fL (80-100); MONOCYTES # (AUTO) 0.9 K/uL (0.1-1.0); MONOCYTES % (AUTO) 8.5 % (2.0-9.0); NEUTROPHILS # (AUTO) 6.9 K/uL (1.8-7.7); NEUTROPHILS % (AUTO) 67.5 % (40.0-70.0); PLATELET COUNT (AUTO) 365 K/uL (150-450); RED BLOOD CELL COUNT(AUTO) 5.15 MIL/uL (4.50-5.90); RED CELL DISTRIBUTION WIDTH 14.3 % (11.5-14.5)
[2018-08-02 11:07] LABS: ANION GAP 7 mmol/L (8-16); CALCIUM, TOTAL 8.5 mg/dL (8.8-10.5); CARBON DIOXIDE 29 mmol/L (22-29); CHLORIDE 104 mmol/L (98-107); CREATININE 1.01 mg/dL (0.60-1.30); GLOMERULAR FILTR. RATE CALC > 60 mL/min (>60); GLUCOSE,RANDOM 102 mg/dL (70-110); POTASSIUM 3.3 mmol/L (3.5-5.1); SODIUM SERUM 140 mmol/L (136-145); UREA NITROGEN, BLOOD 15 mg/dL (7-18)
[2018-08-02 11:13] LABS: ALANINE AMINOTRANSFERASE 38 U/L (12-78); ALBUMIN 3.5 g/dL (3.4-5.0); ALKALINE PHOSPHATASE 90 U/L (46-116); ASPARTATE AMINOTRANSFERASE 21 U/L (15-37); BILIRUBIN,TOTAL 0.5 mg/dL (0.1-1.0); TOTAL PROTEIN, SERUM 7.3 g/dL (6.4-8.2)
[2018-08-02 11:18] LABS: LITHIUM < 0.20 mmol/L (0.60-1.20)
[2018-08-02 11:57] VITALS: BP 157/91
== END 2018-08-02 12:55 | disposition home or self-care (01) ==
LOC: EMS 10:11
DX: F30.9 Manic episode, unspecified (principal); F17.210 Nicotine dependence, cigarettes, uncomplicated; F14.90 Cocaine use, unspecified, uncomplicated; F12.90 Cannabis use, unspecified, uncomplicated; F15.90 Other stimulant use, unspecified, uncomplicated; F20.9 Schizophrenia, unspecified; Z79.899 Other long term (current) drug therapy
CPT/HCPCS: 36415; 80053; 80178; 80307; 85025; 99284; 99406; G0480

== ENCOUNTER 2018-08-02 15:20 | Emergency (ER) | payer MEDICAID ==
[~2018-08-02] VITALS: Ht 170.2 cm; Wt 86.4 kg
[2018-08-02 17:57] LABS: BASOPHILS % (AUTO) 0.6 % (0.0-2.0); EOSINOPHILS % (AUTO) 5.3 % (1.0-6.0); HEMATOCRIT 41.7 % (41-53); HEMOGLOBIN 13.6 g/dL (13.5-17.5); LYMPHOCYTES # (AUTO) 2.6 K/uL (1.0-4.8); MEAN CORPUSCULAR HEMOGLOBIN 26.4 pg (26.0-34.0); MEAN CORPUSCULAR HGB CONC 32.6 G/dL (31.0-37.0); MEAN CORPUSCULAR VOLUME 81 fL (80-100); MONOCYTES # (AUTO) 0.9 K/uL (0.1-1.0); MONOCYTES % (AUTO) 9.4 % (2.0-9.0); NEUTROPHILS # (AUTO) 5.2 K/uL (1.8-7.7); NEUTROPHILS % (AUTO) 56.7 % (40.0-70.0); PLATELET COUNT (AUTO) 362 K/uL (150-450); RED BLOOD CELL COUNT(AUTO) 5.14 MIL/uL (4.50-5.90); RED CELL DISTRIBUTION WIDTH 14.5 % (11.5-14.5)
[2018-08-02 18:30] VITALS: BP 135/99
[2018-08-02 18:40] LABS: ANION GAP 6 mmol/L (8-16); CALCIUM, TOTAL 9.3 mg/dL (8.8-10.5); CARBON DIOXIDE 31 mmol/L (22-29); CHLORIDE 104 mmol/L (98-107); CREATININE 0.91 mg/dL (0.60-1.30); GLOMERULAR FILTR. RATE CALC > 60 mL/min (>60); GLUCOSE,RANDOM 96 mg/dL (70-110); POTASSIUM 3.9 mmol/L (3.5-5.1); SODIUM SERUM 141 mmol/L (136-145); UREA NITROGEN, BLOOD 14 mg/dL (7-18)
[2018-08-02 18:46] LABS: ALANINE AMINOTRANSFERASE 35 U/L (12-78); ALBUMIN 3.4 g/dL (3.4-5.0); ALKALINE PHOSPHATASE 107 U/L (46-116); ASPARTATE AMINOTRANSFERASE 21 U/L (15-37); BILIRUBIN,TOTAL 0.3 mg/dL (0.1-1.0); TOTAL PROTEIN, SERUM 7.2 g/dL (6.4-8.2)
== END 2018-08-02 18:39 | disposition home or self-care (01) ==
LOC: EMS 15:20
DX: F20.9 Schizophrenia, unspecified (principal); F31.9 Bipolar disorder, unspecified; F17.210 Nicotine dependence, cigarettes, uncomplicated; F12.90 Cannabis use, unspecified, uncomplicated; F14.90 Cocaine use, unspecified, uncomplicated; F15.90 Other stimulant use, unspecified, uncomplicated; Z79.899 Other long term (current) drug therapy
CPT/HCPCS: 36415; 80053; 85025; 99284; G0480

== ENCOUNTER 2019-01-21 14:35 | Emergency (ER) | payer MEDICAID ==
[~2019-01-21] VITALS: Ht 172.7 cm; Wt 86.4 kg
[~2019-01-21 14:35] MED LIST changes: -LITH300C3 PO
[2019-01-21 15:00] VITALS: BP 134/85
[2019-01-21 16:18] LABS: AMPHET/METH SCREEN,URINE NEGATIVE (NEGATIVE); BARBITURATE SCREEN, URINE NEGATIVE (NEGATIVE); BENZODIAZEPINES SCREEN,URINE NEGATIVE (NEGATIVE); CANNABINOID SCREEN,URINE POSITIVE (NEGATIVE); COCAINE SCREEN,URINE NEGATIVE (NEGATIVE); METHADONE SCREEN, URINE NEGATIVE (NEGATIVE); OPIATE SCREEN,URINE NEGATIVE (NEGATIVE)
[2019-01-21 16:19] LABS: PHENCYCLIDINE SCREEN,URINE NEGATIVE (NEGATIVE)
[2019-01-21 16:21] LABS: BASOPHILS % (AUTO) 0.6 % (0.0-2.0); EOSINOPHILS % (AUTO) 4.2 % (1.0-6.0); HEMATOCRIT 44.5 % (41-53); LYMPHOCYTES % (AUTO) 21.8 % (22.0-44.0); MEAN CORPUSCULAR HEMOGLOBIN 27.5 pg (26.0-34.0); MEAN CORPUSCULAR HGB CONC 33.7 G/dL (31.0-37.0); MEAN CORPUSCULAR VOLUME 82 fL (80-100); MONOCYTES # (AUTO) 0.7 K/uL (0.1-1.0); NEUTROPHILS # (AUTO) 6.1 K/uL (1.8-7.7); NEUTROPHILS % (AUTO) 65.4 % (40.0-70.0); PLATELET COUNT (AUTO) 452 K/uL (150-450); RED BLOOD CELL COUNT(AUTO) 5.45 MIL/uL (4.50-5.90); RED CELL DISTRIBUTION WIDTH 14.5 % (11.5-14.5)
[2019-01-21 16:48] LABS: ANION GAP 11 mmol/L (8-16); CALCIUM, TOTAL 8.5 mg/dL (8.8-10.5); CARBON DIOXIDE 25 mmol/L (22-29); CHLORIDE 103 mmol/L (98-107); CREATININE 0.99 mg/dL (0.60-1.30); GLOMERULAR FILTR. RATE CALC > 60 mL/min (>60); GLUCOSE,RANDOM 151 mg/dL (70-110); POTASSIUM 3.6 mmol/L (3.5-5.1); SODIUM SERUM 139 mmol/L (136-145); UREA NITROGEN, BLOOD 14 mg/dL (7-18)
[2019-01-21 17:00] LABS: ALANINE AMINOTRANSFERASE 25 U/L (12-78); ALBUMIN 3.3 g/dL (3.4-5.0); ALKALINE PHOSPHATASE 112 U/L (46-116); ASPARTATE AMINOTRANSFERASE 20 U/L (15-37); BILIRUBIN,TOTAL 0.2 mg/dL (0.1-1.0); TOTAL PROTEIN, SERUM 7.8 g/dL (6.4-8.2)
== END 2019-01-21 18:18 | disposition home or self-care (01) ==
LOC: EMS 14:36
DX: F25.9 Schizoaffective disorder, unspecified (principal); R45.4 Irritability and anger; F31.9 Bipolar disorder, unspecified; F17.210 Nicotine dependence, cigarettes, uncomplicated; F11.90 Opioid use, unspecified, uncomplicated; F12.90 Cannabis use, unspecified, uncomplicated; F15.90 Other stimulant use, unspecified, uncomplicated; Z79.899 Other long term (current) drug therapy
CPT/HCPCS: 36415; 80053; 80307; 85025; 99284; G0480

== ENCOUNTER 2019-01-23 10:26 | Inpatient (IN) | payer MEDICAID ==
[~2019-01-23] VITALS: Ht 167.6 cm; Wt 84.1 kg
[~2019-01-23 10:26] MED LIST changes: -LITH600 PO
[2019-01-23] MEDS ORDERED: HALO100V4 IM (10:46)
[2019-01-23 11:08] LABS: BASOPHILS % (AUTO) 0.6 % (0.0-2.0); EOSINOPHILS % (AUTO) 1.5 % (1.0-6.0); HEMATOCRIT 42.1 % (41-53); HEMOGLOBIN 13.9 g/dL (13.5-17.5); LYMPHOCYTES % (AUTO) 21.1 % (22.0-44.0); MEAN CORPUSCULAR HEMOGLOBIN 26.7 pg (26.0-34.0); MEAN CORPUSCULAR HGB CONC 33.1 G/dL (31.0-37.0); MEAN CORPUSCULAR VOLUME 81 fL (80-100); MONOCYTES # (AUTO) 0.9 K/uL (0.1-1.0); MONOCYTES % (AUTO) 9.5 % (2.0-9.0); NEUTROPHILS # (AUTO) 6.3 K/uL (1.8-7.7); NEUTROPHILS % (AUTO) 67.3 % (40.0-70.0); PLATELET COUNT (AUTO) 409 K/uL (150-450); RED BLOOD CELL COUNT(AUTO) 5.23 MIL/uL (4.50-5.90); RED CELL DISTRIBUTION WIDTH 14.3 % (11.5-14.5)
[2019-01-23] MEDS ORDERED: LORazepam 2 MG TABLET PO ONE (11:15)
[2019-01-23] MEDS ORDERED: HALOPERIDOL 5 MG TABLET PO ONE (11:15)
[2019-01-23] MEDS ORDERED: ZOLPIDEM TARTRATE 10 MG TABLET PO PRN (11:30)
[2019-01-23] MEDS ORDERED: HALOPERIDOL 5 MG TABLET PO PRN (11:30)
[2019-01-23] MEDS ORDERED: LORazepam 2 MG TABLET PO PRN (11:30)
[2019-01-23 11:31] LABS: ANION GAP 9 mmol/L (8-16); CALCIUM, TOTAL 8.8 mg/dL (8.8-10.5); CARBON DIOXIDE 27 mmol/L (22-29); CHLORIDE 104 mmol/L (98-107); CREATININE 0.93 mg/dL (0.60-1.30); GLOMERULAR FILTR. RATE CALC > 60 mL/min (>60); GLUCOSE,RANDOM 93 mg/dL (70-110); POTASSIUM 3.7 mmol/L (3.5-5.1); SODIUM SERUM 140 mmol/L (136-145); UREA NITROGEN, BLOOD 14 mg/dL (7-18)
[2019-01-23 11:37] LABS: ALANINE AMINOTRANSFERASE 27 U/L (12-78); ALBUMIN 3.4 g/dL (3.4-5.0); ALKALINE PHOSPHATASE 91 U/L (46-116); ASPARTATE AMINOTRANSFERASE 19 U/L (15-37); BILIRUBIN,TOTAL 0.4 mg/dL (0.1-1.0); TOTAL PROTEIN, SERUM 7.4 g/dL (6.4-8.2)
[2019-01-23 12:51] VITALS: BP 141/95
[2019-01-23 16:42] VITALS: BP 140/71
[2019-01-23] MEDS ORDERED: IBUPROFEN 400 MG TABLET PO PRN (21:00)
[2019-01-23] MEDS ORDERED: ALBUTEROL SULFATE HFA 90 MCG/PUFF 8 GM INHALER IH PRN (21:00)
[2019-01-23] MEDS ORDERED: NICOTINE 14 MG/24 HOUR PATCH TD PRN (21:00)
[2019-01-23] MEDS ORDERED: MAG HYDROX/AL HYDROX/SIMETH ES 30 ML SUSPENSION UDCUP PO PRN (21:00)
[2019-01-23] MEDS ORDERED: LOPERAMIDE HCL 2 MG CAPSULE PO PRN (21:00)
[2019-01-23] MEDS ORDERED: MAGNESIUM HYDROXIDE SUSPENSION 30 ML UDCUP PO PRN (21:00)
[2019-01-23] MEDS ORDERED: ACETAMINOPHEN 325 MG TABLET PO PRN (21:00)
[2019-01-23] MEDS ORDERED: CloNIDine HCL 0.1 MG TABLET PO PRN (21:00)
[2019-01-23] MEDS ORDERED: GuaiFENesin/D-METHORPHAN [SUGAR-FREE] 200-20MG/10 ML SYRUP UDCUP PO PRN (21:00)
[2019-01-23] MEDS ORDERED: DOCUSATE SODIUM 100 MG CAPSULE PO PRN (21:00)
[2019-01-23] MEDS ORDERED: PETROLATUM,WHITE 28 GM JELLY TP PRN (21:00)
[2019-01-23] MEDS ORDERED: ONDANSETRON HCL 4 MG TABLET PO PRN (21:00)
[2019-01-24 00:40] VITALS: BP 159/75
[2019-01-24 07:09] LABS: CHOL/HDL RATIO 4.6 (4.2-7.3); CHOLESTEROL 188 mg/dL (131-200); HDL CHOLESTEROL 41 mg/dL (40-60); LDL CHOL (CALC.) 122 mg/dL (0-130); TRIGLYCERIDES 123 mg/dL (15-150)
[2019-01-24 08:30] VITALS: BP 115/66
[2019-01-24 10:22] VITALS: BP 115/66
[2019-01-24 16:00] VITALS: BP 129/87
[2019-01-24 16:05] VITALS: BP 100/62
[2019-01-25] MEDS: HALOPERIDOL 10 MG TABLET PO SCH ×2 (10:15→16:31)
[2019-01-25] MEDS ORDERED: OLANZapine 10 MG RAPDIS TABLET PO SCH (10:15)
[2019-01-25 10:34] VITALS: BP 140/89
[2019-01-26 07:22] LABS: CHOL/HDL RATIO 4.9 (4.2-7.3); FREE T4 (FREE THYROXINE) 0.97 ng/dL (0.76-1.46)
[2019-01-26 08:27] VITALS: BP 148/87
[2019-01-26] MEDS: HALOPERIDOL 10 MG TABLET PO SCH ×2 (09:00→17:00)
[2019-01-26] MEDS ORDERED: DiphenhydrAMINE HCL 50 MG/ML VIAL ONE (09:11)
[2019-01-26] MEDS ORDERED: HALOPERIDOL LACTATE 5 MG/ML VIAL ONE (09:11)
[2019-01-26] MEDS ORDERED: LORazepam 2 MG/ML VIAL ONE (09:11)
[2019-01-26] MEDS ORDERED: LORazepam 2 MG/ML VIAL IM ONE (09:45)
[2019-01-26] MEDS ORDERED: HALOPERIDOL LACTATE 5 MG/ML VIAL IM ONE (09:45)
[2019-01-26] MEDS ORDERED: DiphenhydrAMINE HCL 50 MG/ML VIAL IM ONE (09:45)
[2019-01-26 16:00] VITALS: BP 127/75
[2019-01-27] MEDS: HALOPERIDOL 10 MG TABLET PO SCH ×2 (08:32→17:30)
[2019-01-27 08:34] VITALS: BP 132/79
[2019-01-27 16:05] VITALS: BP 134/83
[2019-01-28] MEDS: HALOPERIDOL 10 MG TABLET PO SCH ×2 (09:07→15:59)
[2019-01-28 09:47] VITALS: BP 138/95
== END 2019-01-28 17:15 | disposition left against medical advice (07) | DRG 753 ==
LOC: EMS 10:27 → 3EC 13:11
PROVIDERS: ADMIT Psychiatry & Neurology Child & Adolescent Psychiatry; ATTEND Psychiatry & Neurology Child & Adolescent Psychiatry
DX: F31.2 Bipolar disorder, current episode manic severe with psychotic features (principal); R45.850 Homicidal ideations; E78.5 Hyperlipidemia, unspecified; F17.210 Nicotine dependence, cigarettes, uncomplicated; F12.90 Cannabis use, unspecified, uncomplicated; Z59.0 Homelessness; F10.10 Alcohol abuse, uncomplicated; R00.0 Tachycardia, unspecified; F19.10 Other psychoactive substance abuse, uncomplicated; F14.90 Cocaine use, unspecified, uncomplicated; R03.0 Elevated blood-pressure reading, without diagnosis of hypertension; Z53.29 Procedure and treatment not carried out because of patient's decision for other reasons
CPT/HCPCS: 84436; 84439; G0480; J1200; J1630; J2060

== ENCOUNTER 2019-02-03 17:31 | Emergency (ER) | payer MEDICAID ==
[~2019-02-03] VITALS: Ht 170.2 cm; Wt 86.4 kg
[2019-02-03] MEDS ORDERED: HALO50VI4 IM (18:00)
[2019-02-03 18:53] LABS: BASOPHILS % (AUTO) 0.3 % (0.0-2.0); EOSINOPHILS % (AUTO) 1.3 % (1.0-6.0); HEMATOCRIT 45.1 % (41-53); HEMOGLOBIN 14.9 g/dL (13.5-17.5); LYMPHOCYTES # (AUTO) 1.7 K/uL (1.0-4.8); LYMPHOCYTES % (AUTO) 12.2 % (22.0-44.0); MEAN CORPUSCULAR HEMOGLOBIN 26.9 pg (26.0-34.0); MEAN CORPUSCULAR VOLUME 82 fL (80-100); MONOCYTES # (AUTO) 0.7 K/uL (0.1-1.0); MONOCYTES % (AUTO) 4.8 % (2.0-9.0); NEUTROPHILS # (AUTO) 11.1 K/uL (1.8-7.7); NEUTROPHILS % (AUTO) 81.4 % (40.0-70.0); PLATELET COUNT (AUTO) 342 K/uL (150-450); RED BLOOD CELL COUNT(AUTO) 5.53 MIL/uL (4.50-5.90); RED CELL DISTRIBUTION WIDTH 14.6 % (11.5-14.5)
[2019-02-03 19:20] LABS: AMPHET/METH SCREEN,URINE NEGATIVE (NEGATIVE); APPEARANCE,URINE CLEAR (CLEAR); BARBITURATE SCREEN, URINE NEGATIVE (NEGATIVE); BENZODIAZEPINES SCREEN,URINE NEGATIVE (NEGATIVE); BILIRUBIN,URINE NEGATIVE (NEGATIVE); CANNABINOID SCREEN,URINE POSITIVE (NEGATIVE); COCAINE SCREEN,URINE NEGATIVE (NEGATIVE); GLUCOSE, URINE (UA) NEGATIVE (NEGATIVE); KETONES,URINE NEGATIVE (NEGATIVE); LEUKOCYTE ESTERASE ,URINE NEGATIVE (NEGATIVE); METHADONE SCREEN, URINE NEGATIVE (NEGATIVE); NITRATE,URINE NEGATIVE (NEGATIVE); OCCULT BLOOD,URINE NEGATIVE (NEGATIVE); OPIATE SCREEN,URINE NEGATIVE (NEGATIVE); PH,URINE 6.5 (5.0-8.0); PROTEIN,URINE NEGATIVE (NEGATIVE); UROBILINOGEN,URINE 0.2 mg/dL (<=1.0)
[2019-02-03 19:28] LABS: PHENCYCLIDINE SCREEN,URINE NEGATIVE (NEGATIVE)
[2019-02-03 19:29] LABS: INFLUENZA TYPE A NEGATIVE FOR TYPE A (NEGATIVE)
[2019-02-03 19:30] LABS: INFLUENZA TYPE B NEGATIVE FOR TYPE B (NEGATIVE)
[2019-02-03 19:33] LABS: ANION GAP 9 mmol/L (8-16); CALCIUM, TOTAL 8.6 mg/dL (8.8-10.5); CARBON DIOXIDE 27 mmol/L (22-29); CHLORIDE 101 mmol/L (98-107); CREATININE 0.98 mg/dL (0.60-1.30); GLOMERULAR FILTR. RATE CALC > 60 mL/min (>60); GLUCOSE,RANDOM 126 mg/dL (70-110); POTASSIUM 4.2 mmol/L (3.5-5.1); SODIUM SERUM 137 mmol/L (136-145); UREA NITROGEN, BLOOD 6 mg/dL (7-18)
[2019-02-03 19:39] LABS: ALANINE AMINOTRANSFERASE 35 U/L (12-78); ALBUMIN 3.9 g/dL (3.4-5.0); ALKALINE PHOSPHATASE 93 U/L (46-116); ASPARTATE AMINOTRANSFERASE 27 U/L (15-37); BILIRUBIN,TOTAL 0.7 mg/dL (0.1-1.0); TOTAL PROTEIN, SERUM 8.2 g/dL (6.4-8.2)
[2019-02-03 20:27] LABS: PLATELET MORPHOLOGY COMMENT NORMAL
[2019-02-03] MEDS ORDERED: LIDOCAINE/PF 1% 2 ML VIAL IM ONE (21:00)
[2019-02-03] MEDS ORDERED: CefTRIAXone SODIUM 1 GM/VIAL IM ONE (21:00)
[2019-02-03 21:36] VITALS: BP 102/71
== END 2019-02-03 21:45 | disposition home or self-care (01) ==
LOC: EMS 17:32
DX: J40 Bronchitis, not specified as acute or chronic (principal); F31.9 Bipolar disorder, unspecified; F17.210 Nicotine dependence, cigarettes, uncomplicated; F14.90 Cocaine use, unspecified, uncomplicated; F12.90 Cannabis use, unspecified, uncomplicated; F19.90 Other psychoactive substance use, unspecified, uncomplicated
CPT/HCPCS: 36415; 71045; 80053; 80307; 81003; 85025; 87804; 93005; 96372; 99285; J0696; J3490

== ENCOUNTER 2021-02-08 13:42 | Emergency (ER) | payer MEDICAID ==
[~2021-02-08] VITALS: Ht 172.7 cm; Wt 81.8 kg
[~2021-02-08 13:42] MED LIST changes: -CLON2 PO; +DIVA-112 PO; +HALO10 PO; -HALO100V4 IM; -OLAN7.5T2 PO; +RISP1TAB48 PO
[2021-02-08 17:16] VITALS: BP 136/88
== END 2021-02-08 17:38 | disposition home or self-care (01) ==
LOC: EMS 13:45
DX: F15.90 Other stimulant use, unspecified, uncomplicated (principal); F31.9 Bipolar disorder, unspecified; F12.90 Cannabis use, unspecified, uncomplicated; F14.90 Cocaine use, unspecified, uncomplicated; F17.210 Nicotine dependence, cigarettes, uncomplicated; Z79.899 Other long term (current) drug therapy
CPT/HCPCS: 99283; Z7502

== ENCOUNTER 2021-02-09 18:22 | Inpatient (IN) | payer MEDICAID ==
[~2021-02-09] VITALS: Ht 172.7 cm; Wt 77.1 kg
[2021-02-09 21:10] LABS: COVID AG,FIA SOURCE NASOPHARYNGEAL
[2021-02-09 21:13] LABS: BASOPHILS % (AUTO) 0.9 % (0.0-2.0); EOSINOPHILS % (AUTO) 0.9 % (1.0-6.0); HEMATOCRIT 29.5 % (41-53); HEMOGLOBIN 8.7 g/dL (13.5-17.5); LYMPHOCYTES # (AUTO) 1.9 K/uL (1.0-4.8); LYMPHOCYTES % (AUTO) 16.3 % (22.0-44.0); MEAN CORPUSCULAR HEMOGLOBIN 18.6 pg (26.0-34.0); MEAN CORPUSCULAR HGB CONC 29.4 G/dL (31.0-37.0); MEAN CORPUSCULAR VOLUME 63 fL (80-100); MONOCYTES # (AUTO) 1.4 K/uL (0.1-1.0); MONOCYTES % (AUTO) 11.5 % (2.0-9.0); NEUTROPHILS # (AUTO) 8.3 K/uL (1.8-7.7); NEUTROPHILS % (AUTO) 70.4 % (40.0-70.0); PLATELET COUNT (AUTO) 378 K/uL (150-450); RED BLOOD CELL COUNT(AUTO) 4.68 MIL/uL (4.50-5.90); RED CELL DISTRIBUTION WIDTH 19.4 % (11.5-14.5)
[2021-02-09 21:15] LABS: ANION GAP 4 mmol/L (8-16); CALCIUM, TOTAL 8.8 mg/dL (8.8-10.5); CARBON DIOXIDE 27 mmol/L (22-29); CHLORIDE 106 mmol/L (98-107); CREATININE 0.75 mg/dL (0.60-1.30); GLOMERULAR FILTR. RATE CALC > 60 mL/min (>60); GLUCOSE,RANDOM 100 mg/dL (70-110); POTASSIUM 3.4 mmol/L (3.5-5.1); SODIUM SERUM 137 mmol/L (136-145); UREA NITROGEN, BLOOD 15 mg/dL (7-18)
[2021-02-09 21:21] LABS: ALANINE AMINOTRANSFERASE 30 U/L (12-78); ALBUMIN 2.9 g/dL (3.4-5.0); ALKALINE PHOSPHATASE 83 U/L (46-116); ASPARTATE AMINOTRANSFERASE 26 U/L (15-37); BILIRUBIN,TOTAL 0.3 mg/dL (0.1-1.0); TOTAL PROTEIN, SERUM 6.8 g/dL (6.4-8.2)
[2021-02-09 21:22] LABS: VALPROIC ACID < 3 mcg/mL (50-100)
[2021-02-09] MEDS ORDERED: DiphenhydrAMINE HCL 50 MG/ML VIAL IM ONE (23:30)
[2021-02-09] MEDS ORDERED: HALOPERIDOL LACTATE 5 MG/ML VIAL IM ONE (23:30)
[2021-02-09] MEDS ORDERED: LORazepam 2 MG/ML VIAL IM ONE (23:30)
[2021-02-10 01:39] VITALS: BP 111/71
[2021-02-10] MEDS ORDERED: INFLUENZA VIRUS VACCINE QVS 2021-22 (6MO+)/PF 60 MCG/0.5 ML SYRINGE IM. ONE (04:00)
[2021-02-10 07:34] LABS: CHOL/HDL RATIO 2.6 (4.2-7.3)
[2021-02-10] MEDS ORDERED: NICOTINE 14 MG/24 HOUR PATCH TD PRN (07:45)
[2021-02-10] MEDS ORDERED: MAGNESIUM HYDROXIDE SUSPENSION 30 ML UDCUP PO PRN (07:45)
[2021-02-10] MEDS ORDERED: IBUPROFEN 400 MG TABLET PO PRN (07:45)
[2021-02-10] MEDS ORDERED: LOPERAMIDE HCL 2 MG CAPSULE PO PRN (07:45)
[2021-02-10] MEDS ORDERED: CloNIDine HCL 0.1 MG TABLET PO PRN (07:45)
[2021-02-10] MEDS ORDERED: PETROLATUM,WHITE 28 GM JELLY TP PRN (07:45)
[2021-02-10] MEDS ORDERED: DOCUSATE SODIUM 100 MG CAPSULE PO PRN (07:45)
[2021-02-10] MEDS ORDERED: ACETAMINOPHEN 325 MG TABLET PO PRN (07:45)
[2021-02-10] MEDS ORDERED: ONDANSETRON HCL 4 MG TABLET PO PRN (07:45)
[2021-02-10] MEDS ORDERED: MAG HYDROX/AL HYDROX/SIMETH ES 30 ML SUSPENSION UDCUP PO PRN (07:45)
[2021-02-10 08:28] VITALS: BP 125/79
[2021-02-10] MEDS: VALPROIC ACID 250 MG/5 ML SOLUTION UDCUP PO SCH ×2 (12:59→20:43)
[2021-02-10] MEDS: GuaiFENesin/D-METHORPHAN [SUGAR-FREE] 200-20MG/10 ML SYRUP UDCUP PO PRN (13:00)
[2021-02-10] MEDS: NICOTINE POLACRILEX 2 MG LOZENGE PO PRN (14:35)
[2021-02-10] MEDS: RisperiDONE CONC 2 MG/2 ML SOLUTION ORAL.SYG PO SCH ×2 (16:15→20:44)
[2021-02-10 16:20] VITALS: BP 119/80
[2021-02-10] MEDS: LORazepam 2 MG TABLET PO PRN (16:35)
[2021-02-10] MEDS: HALOPERIDOL 5 MG TABLET PO PRN (16:35)
[2021-02-10] MEDS ORDERED: POTASSIUM CHLORIDE 20 MEQ ER TABLET PO ONE (17:00)
[2021-02-11 00:19] VITALS: BP 120/81
[2021-02-11] MEDS: HALOPERIDOL 5 MG TABLET PO PRN (04:40)
[2021-02-11] MEDS: LORazepam 2 MG TABLET PO PRN (04:40)
[2021-02-11 08:10] VITALS: BP 121/60
[2021-02-11] MEDS: RisperiDONE CONC 2 MG/2 ML SOLUTION ORAL.SYG PO SCH ×2 (08:28→21:00)
[2021-02-11] MEDS: VALPROIC ACID 250 MG/5 ML SOLUTION UDCUP PO SCH ×2 (08:29→21:00)
[2021-02-11] MEDS: NICOTINE POLACRILEX 2 MG LOZENGE PO PRN (09:43)
[2021-02-11 16:17] VITALS: BP 123/82
[2021-02-11] MEDS ORDERED: GuaiFENesin/D-METHORPHAN [SUGAR-FREE] 200-20MG/10 ML SYRUP UDCUP PO PRN (18:15)
[2021-02-11] MEDS: LORATADINE 10 MG TABLET PO SCH (19:13)
[2021-02-11 19:46] LABS: GLUCOMETER DEV NAME(LOC) POC.BV
[2021-02-11] MEDS: ZOLPIDEM TARTRATE 10 MG TABLET PO PRN (21:00)
[2021-02-12] MEDS: HALOPERIDOL 5 MG TABLET PO PRN ×2 (01:04→16:00)
[2021-02-12] MEDS: LORazepam 2 MG TABLET PO PRN ×3 (01:04→16:00)
[2021-02-12 01:16] VITALS: BP 119/80
[2021-02-12 08:15] VITALS: BP 137/77
[2021-02-12] MEDS: LORATADINE 10 MG TABLET PO SCH (08:25)
[2021-02-12] MEDS: RisperiDONE CONC 2 MG/2 ML SOLUTION ORAL.SYG PO SCH ×2 (08:25→20:50)
[2021-02-12] MEDS: VALPROIC ACID 250 MG/5 ML SOLUTION UDCUP PO SCH ×2 (08:25→20:51)
[2021-02-12] MEDS: NICOTINE POLACRILEX 2 MG LOZENGE PO PRN ×3 (08:29→16:24)
[2021-02-12] MEDS: GuaiFENesin/D-METHORPHAN [SUGAR-FREE] 200-20MG/10 ML SYRUP UDCUP PO PRN (12:56)
[2021-02-12 16:15] VITALS: BP 138/73
[2021-02-13 02:27] VITALS: BP 113/64
[2021-02-13] MEDS: NICOTINE POLACRILEX 2 MG LOZENGE PO PRN (04:38)
[2021-02-13] MEDS: GuaiFENesin/D-METHORPHAN [SUGAR-FREE] 200-20MG/10 ML SYRUP UDCUP PO PRN (06:17)
[2021-02-13] MEDS: RisperiDONE CONC 2 MG/2 ML SOLUTION ORAL.SYG PO SCH ×2 (08:14→20:42)
[2021-02-13] MEDS: LORazepam 2 MG TABLET PO PRN ×3 (08:16→20:20)
[2021-02-13] MEDS: VALPROIC ACID 250 MG/5 ML SOLUTION UDCUP PO SCH ×2 (08:16→20:19)
[2021-02-13] MEDS: LORATADINE 10 MG TABLET PO SCH (08:16)
[2021-02-13 14:29] VITALS: BP 142/84
[2021-02-13 16:33] VITALS: BP 135/84
[2021-02-13] MEDS: ZOLPIDEM TARTRATE 10 MG TABLET PO PRN (20:19)
[2021-02-14 03:57] VITALS: BP 128/80
[2021-02-14] MEDS: LORazepam 2 MG TABLET PO PRN ×2 (06:33→18:33)
[2021-02-14] MEDS: HALOPERIDOL 5 MG TABLET PO PRN ×2 (06:33→18:33)
[2021-02-14] MEDS: RisperiDONE CONC 2 MG/2 ML SOLUTION ORAL.SYG PO SCH ×2 (08:19→22:26)
[2021-02-14] MEDS: VALPROIC ACID 250 MG/5 ML SOLUTION UDCUP PO SCH ×2 (08:19→22:26)
[2021-02-14] MEDS: LORATADINE 10 MG TABLET PO SCH (08:19)
[2021-02-14 08:25] VITALS: BP 147/82
[2021-02-14] MEDS: ALBUTEROL SULFATE HFA 90 MCG/PUFF 8 GM INHALER IH PRN (09:27)
[2021-02-14] MEDS: NICOTINE POLACRILEX 2 MG LOZENGE PO PRN (10:11)
[2021-02-14 16:20] VITALS: BP 148/78
[2021-02-14] MEDS: FERROUS SULFATE 325 MG EC TABLET PO SCH (17:50)
[2021-02-14 20:12] VITALS: BP 111/67
[2021-02-15 04:23] VITALS: BP 108/79
[2021-02-15] MEDS: FERROUS SULFATE 325 MG EC TABLET PO SCH ×2 (06:06→16:03)
[2021-02-15] MEDS: RisperiDONE CONC 2 MG/2 ML SOLUTION ORAL.SYG PO SCH ×2 (08:26→20:41)
[2021-02-15] MEDS: HALOPERIDOL 5 MG TABLET PO PRN ×2 (08:26→15:43)
[2021-02-15] MEDS: LORazepam 2 MG TABLET PO PRN ×3 (08:26→19:57)
[2021-02-15] MEDS: VALPROIC ACID 250 MG/5 ML SOLUTION UDCUP PO SCH ×2 (08:27→20:41)
[2021-02-15] MEDS: LORATADINE 10 MG TABLET PO SCH (08:27)
[2021-02-15 09:48] VITALS: BP 138/76
[2021-02-15 16:18] VITALS: BP 123/68
[2021-02-15] MEDS: ZOLPIDEM TARTRATE 10 MG TABLET PO PRN (20:41)
[2021-02-16 04:55] VITALS: BP 111/77
[2021-02-16] MEDS: FERROUS SULFATE 325 MG EC TABLET PO SCH ×2 (06:07→16:24)
[2021-02-16] MEDS: NICOTINE POLACRILEX 2 MG LOZENGE PO PRN ×3 (06:08→16:39)
[2021-02-16] MEDS: ALBUTEROL SULFATE HFA 90 MCG/PUFF 8 GM INHALER IH PRN (06:09)
[2021-02-16] MEDS: VALPROIC ACID 250 MG/5 ML SOLUTION UDCUP PO SCH ×2 (08:36→20:40)
[2021-02-16] MEDS: LORazepam 2 MG TABLET PO PRN ×3 (08:37→16:39)
[2021-02-16] MEDS: LORATADINE 10 MG TABLET PO SCH (08:37)
[2021-02-16 08:38] VITALS: BP 148/80
[2021-02-16] MEDS: RisperiDONE CONC 2 MG/2 ML SOLUTION ORAL.SYG PO SCH ×2 (08:38→20:41)
[2021-02-16] MEDS: HALOPERIDOL 5 MG TABLET PO PRN ×2 (11:09→16:39)
[2021-02-16 16:24] VITALS: BP 128/80
[2021-02-16] MEDS: ZOLPIDEM TARTRATE 10 MG TABLET PO PRN (20:40)
[2021-02-17 00:17] VITALS: BP 142/80
[2021-02-17 05:15] VITALS: BP 148/87
[2021-02-17] MEDS: FERROUS SULFATE 325 MG EC TABLET PO SCH ×2 (06:36→17:11)
[2021-02-17] MEDS: NICOTINE POLACRILEX 2 MG LOZENGE PO PRN ×2 (06:47→15:53)
[2021-02-17] MEDS: LORazepam 2 MG TABLET PO PRN ×2 (06:47→11:29)
[2021-02-17] MEDS: ALBUTEROL SULFATE HFA 90 MCG/PUFF 8 GM INHALER IH PRN (06:50)
[2021-02-17] MEDS: LORATADINE 10 MG TABLET PO SCH (08:16)
[2021-02-17] MEDS: RisperiDONE CONC 2 MG/2 ML SOLUTION ORAL.SYG PO SCH ×2 (08:16→21:00)
[2021-02-17] MEDS: VALPROIC ACID 250 MG/5 ML SOLUTION UDCUP PO SCH ×2 (08:17→21:00)
[2021-02-17 09:50] VITALS: BP 118/72
[2021-02-17 16:24] VITALS: BP 126/79
[2021-02-18 00:42] VITALS: BP 132/85
[2021-02-18] MEDS: NICOTINE POLACRILEX 2 MG LOZENGE PO PRN ×2 (05:42→18:58)
[2021-02-18] MEDS: GuaiFENesin/D-METHORPHAN [SUGAR-FREE] 200-20MG/10 ML SYRUP UDCUP PO PRN (05:42)
[2021-02-18] MEDS: ALBUTEROL SULFATE HFA 90 MCG/PUFF 8 GM INHALER IH PRN ×2 (05:43→16:26)
[2021-02-18] MEDS: FERROUS SULFATE 325 MG EC TABLET PO SCH ×2 (06:38→16:26)
[2021-02-18] MEDS: RisperiDONE CONC 2 MG/2 ML SOLUTION ORAL.SYG PO SCH ×2 (08:02→20:04)
[2021-02-18] MEDS: LORazepam 2 MG TABLET PO PRN ×2 (08:02→19:01)
[2021-02-18] MEDS: LORATADINE 10 MG TABLET PO SCH (08:02)
[2021-02-18] MEDS: VALPROIC ACID 250 MG/5 ML SOLUTION UDCUP PO SCH ×2 (08:02→20:04)
[2021-02-18 08:39] VITALS: BP 127/76
[2021-02-18 16:25] VITALS: BP 118/64
[2021-02-18] MEDS: HALOPERIDOL 5 MG TABLET PO PRN (19:01)
[2021-02-19] MEDS: NICOTINE POLACRILEX 2 MG LOZENGE PO PRN (05:39)
[2021-02-19] MEDS: ALBUTEROL SULFATE HFA 90 MCG/PUFF 8 GM INHALER IH PRN ×3 (05:39→21:25)
[2021-02-19] MEDS: GuaiFENesin/D-METHORPHAN [SUGAR-FREE] 200-20MG/10 ML SYRUP UDCUP PO PRN (05:39)
[2021-02-19] MEDS: HALOPERIDOL 5 MG TABLET PO PRN (06:10)
[2021-02-19] MEDS: LORazepam 2 MG TABLET PO PRN ×3 (06:10→22:09)
[2021-02-19] MEDS: FERROUS SULFATE 325 MG EC TABLET PO SCH ×2 (06:41→16:45)
[2021-02-19 08:27] VITALS: BP 121/69
[2021-02-19] MEDS: RisperiDONE CONC 2 MG/2 ML SOLUTION ORAL.SYG PO SCH ×2 (08:51→21:20)
[2021-02-19] MEDS: LORATADINE 10 MG TABLET PO SCH (08:51)
[2021-02-19] MEDS: VALPROIC ACID 250 MG/5 ML SOLUTION UDCUP PO SCH (08:51)
[2021-02-19 09:29] LABS: GLUCOMETER DEV NAME(LOC) POC.BV
[2021-02-19 15:50] LABS: GLUCOMETER DEV NAME(LOC) POC.BV
[2021-02-19 16:28] VITALS: BP 121/71
[2021-02-19] MEDS: VALPROIC ACID 250 MG CAPSULE PO SCH (21:20)
[2021-02-19] MEDS: ZOLPIDEM TARTRATE 10 MG TABLET PO PRN (21:21)
[2021-02-20 00:27] VITALS: BP 113/61
[2021-02-20] MEDS: FERROUS SULFATE 325 MG EC TABLET PO SCH ×2 (06:57→16:25)
[2021-02-20] MEDS: GuaiFENesin/D-METHORPHAN [SUGAR-FREE] 200-20MG/10 ML SYRUP UDCUP PO PRN (06:58)
[2021-02-20] MEDS: NICOTINE POLACRILEX 2 MG LOZENGE PO PRN (06:58)
[2021-02-20] MEDS: LORazepam 2 MG TABLET PO PRN ×2 (06:58→16:25)
[2021-02-20] MEDS: HALOPERIDOL 5 MG TABLET PO PRN ×2 (06:58→16:25)
[2021-02-20] MEDS: VALPROIC ACID 250 MG CAPSULE PO SCH ×2 (08:54→20:41)
[2021-02-20] MEDS: RisperiDONE CONC 2 MG/2 ML SOLUTION ORAL.SYG PO SCH ×2 (08:54→20:41)
[2021-02-20] MEDS: LORATADINE 10 MG TABLET PO SCH (08:54)
[2021-02-20 10:06] VITALS: BP 116/70
[2021-02-20 16:16] VITALS: BP 114/65
[2021-02-20] MEDS: ZOLPIDEM TARTRATE 10 MG TABLET PO PRN (20:41)
[2021-02-21 05:51] VITALS: BP 113/74
[2021-02-21] MEDS: FERROUS SULFATE 325 MG EC TABLET PO SCH ×2 (07:07→17:07)
[2021-02-21] MEDS: RisperiDONE CONC 2 MG/2 ML SOLUTION ORAL.SYG PO SCH ×2 (08:22→20:30)
[2021-02-21] MEDS: LORATADINE 10 MG TABLET PO SCH (08:22)
[2021-02-21] MEDS: VALPROIC ACID 250 MG CAPSULE PO SCH ×2 (08:22→20:30)
[2021-02-21] MEDS: LORazepam 2 MG TABLET PO PRN ×2 (08:26→17:07)
[2021-02-21] MEDS: NICOTINE POLACRILEX 2 MG LOZENGE PO PRN (08:32)
[2021-02-21 08:40] VITALS: BP 136/60
[2021-02-21 16:19] VITALS: BP 114/74
[2021-02-21] MEDS: HALOPERIDOL 5 MG TABLET PO PRN (17:07)
[2021-02-21] MEDS: ZOLPIDEM TARTRATE 10 MG TABLET PO PRN (20:31)
[2021-02-22 06:46] VITALS: BP 128/62
[2021-02-22] MEDS: FERROUS SULFATE 325 MG EC TABLET PO SCH ×2 (06:52→16:38)
[2021-02-22] MEDS: VALPROIC ACID 250 MG CAPSULE PO SCH ×2 (08:38→20:58)
[2021-02-22] MEDS: LORATADINE 10 MG TABLET PO SCH (08:38)
[2021-02-22] MEDS: RisperiDONE CONC 2 MG/2 ML SOLUTION ORAL.SYG PO SCH ×2 (08:38→20:57)
[2021-02-22 08:50] VITALS: BP 143/74
[2021-02-22] MEDS: NICOTINE POLACRILEX 2 MG LOZENGE PO PRN ×2 (11:48→15:06)
[2021-02-22 16:22] VITALS: BP 126/74
[2021-02-22] MEDS: HALOPERIDOL 5 MG TABLET PO PRN (16:38)
[2021-02-22] MEDS: LORazepam 2 MG TABLET PO PRN (16:38)
[2021-02-22] MEDS: ZOLPIDEM TARTRATE 10 MG TABLET PO PRN (20:58)
[2021-02-23 06:25] VITALS: BP 112/74
[2021-02-23] MEDS: FERROUS SULFATE 325 MG EC TABLET PO SCH (06:35)
[2021-02-23 08:22] VITALS: BP 125/64
[2021-02-23] MEDS: VALPROIC ACID 250 MG CAPSULE PO SCH (08:40)
[2021-02-23] MEDS: LORATADINE 10 MG TABLET PO SCH (08:40)
[2021-02-23] MEDS: RisperiDONE CONC 2 MG/2 ML SOLUTION ORAL.SYG PO SCH (08:40)
[2021-02-23] MEDS: LORazepam 2 MG TABLET PO PRN (08:41)
[2021-02-23] MEDS ORDERED: FERR-89 PO (09:08)
== END 2021-02-23 09:45 | disposition home or self-care (01) | DRG 750 ==
LOC: EMS 18:27 → B3A 23:20
PROVIDERS: ADMIT Psychiatry & Neurology Psychiatry; ATTEND Psychiatry & Neurology Psychiatry
DX: F25.0 Schizoaffective disorder, bipolar type (principal); R45.851 Suicidal ideations; D64.9 Anemia, unspecified; D72.829 Elevated white blood cell count, unspecified; E78.5 Hyperlipidemia, unspecified; E87.6 Hypokalemia; F15.90 Other stimulant use, unspecified, uncomplicated; F17.210 Nicotine dependence, cigarettes, uncomplicated; Z20.822 Contact with and (suspected) exposure to COVID-19
CPT/HCPCS: 80053; 80061; 80164; 84132; 85025; 90686; 99285; G0480; J1200; J1630; J2060; J3535; Q9967